=== PATIENT | female | born 1955 | race Two or more races ===

== ENCOUNTER 2016-03-30 07:08 | Emergency (ER) | payer OTHER ==
[2016-03-30] MEDS ORDERED: IOPAMIDOL 370 (76%) 100 ML VIAL IV ONE (07:09)
[2016-03-30] MEDS ORDERED: MAALOX/LIDO2%VISC/SIMETHICONE 40 ML BOT ONE (07:44)
[2016-03-30] MEDS ORDERED: SODIUM CHLORIDE 0.9% 1,000 ML ONE (07:44)
[2016-03-30 07:53] LABS: ABSOLUTE NEUTROPHIL COUNT 3.5 K/mm3 (1.8-7.7); BASO # 0.1 K/mm3 (0.0-0.2); BASO % 0.7 % (0.2-1.0); EOS # 0.2 (0.0-0.5); EOS % 2.5 % (0.9-2.9); HEMATOCRIT 41.6 % (37.0-47.0); HEMOGLOBIN 13.9 gm/l (12.0-16.0); IMM NEUT% 0.3 % (0-1); LYMPH # 2.4 (1.0-4.8); LYMPH % 36.2 % (15-45); MEAN CELL VOLUME 93.7 fl (81.0-99.0); MEAN CORPUSCULAR HEMOGLOBIN 31.3 pg (27.0-31.0); MEAN CORPUSCULAR HGB CONC 33.4 g/dl (33.0-37.0); MEAN PLATELET VOLUME 11.3 fl (7.4-10.4); MONO # 0.6 (0.0-0.8); MONO % 8.2 % (4-12); NEUT % 52.1 % (43-75); PLATELET COUNT 205 K/mm3 (130-400); RED CELL DISTRIBUTION WIDTH 13.3 % (11.5-14.5)
[2016-03-30 08:01] LABS: ALB/GLOB RATIO 1.3 (>1.0); ALBUMIN 3.8 gm/dL (3.5-5.7); CALCIUM 8.9 mg/dL (8.6-10.3)
--- NOTE | 2016-03-30 09:06 | CT ---
URI SLAUGHTER Exam: CT head without contrast, cranial CTA and neck CTA Comparison:None Clinical history:Right arm numbness and right sided facial numbness Procedure: Helical CT using multidetector technique was applied to the head without contrast. Helical CT was then performed from the top of the head through the aortic arch during rapid intravenous administration of 80 cc [id number]. MIP reconstructions were obtained on the CT scanner. An automated dose reduction technique was utilized to patient dose. Findings-CT head (without contrast): There is no shift of the midline structures. Ventricles are of normal size and configuration for the patient's age. There is no mass, mass effect or hemorrhage. Cisterns are uneffaced. Posterior fossa is unremarkable. There is no fracture. Visualized paranasal sinuses and mastoid air cells are within normal limits. CTA head: The distal internal carotid arteries are symmetric and normal. Anterior and middle cerebral arteries are normal. Most of the blood flow to the posterior cerebral arteries comes from the anterior circulation which is a common normal variant. The P1 segments arising from the basilar artery are intact but extremely small. Anterior communicating artery is intact. Right vertebral artery is dominant. The basilar artery is a tiny vessel. Superior cerebellar arteries are intact. There is no aneurysm or vascular malformation. There is no segmental narrowing or filling defect. Enhancing lesion is not appreciated. CTA NECK: Aortic arch is normal caliber. There is a normal 3 great vessel arrangement. Injection was made via the right. Visualized subclavian arteries are normal. The common carotid arteries are codominant and without significant plaque. The carotid bifurcations are intact. The intraconal carotid arteries are normal and without stenosis or dissection. Right vertebral artery is dominant. Basilar artery is a tiny vessel. Visualized upper lobes are clear. There is no suspicious adenopathy in the upper mediastinum. Thyroid glands, submandibular glands and parotid glands are within normal limits. Reactive lymph nodes are noted within both sides of the neck. Degenerative disease of the cervical spine is present. There is a small nuchal calcification at the C5 level. Orbits are intact. Within the right maxillary sinus, there is a 10 mm mucous retention cyst. There is no air-fluid level within the visualized paranasal sinuses. Multiple dental fillings are identified. Orbits are intact.. Impression: 1. Negative unenhanced CT of head 2. Negative CTA head 3. No evidence for carotid stenosis. The right vertebral artery is dominant. The basilar artery is a tiny but intact vessel. Note: Findings were discussed Dr. Gaston [id number] hours
--- NOTE | 2016-03-30 09:07 | RAD ---
Name: URI SLAUGHTER Exam: Two-view chest Comparison: 01/29/2016 Clinical history: Right arm numbness and right-sided facial numbness Findings: 2 views of the chest are submitted. The heart mediastinum and hilar structures are within normal limits. There is no failure, infiltrate, pleural effusion or pneumothorax. Regional skeleton is within normal limits. Impression: No acute cardiopulmonary process
== END 2016-03-30 09:29 | disposition home or self-care (01) ==
LOC: ED 07:08
DX: R20.9 Unspecified disturbances of skin sensation (principal); E66.9 Obesity, unspecified
CPT/HCPCS: 85025; 80053; 84484; 71020; 70450; 70496; 70498; 99284; 99283; A9270; J7030; Q9967